=== PATIENT | female | born 1945 | race Caucasian/White ===

== ENCOUNTER 2017-08-03 09:58 | Inpatient (IN) | payer MEDICARE, BC ==
[~2017-08-03] VITALS: Ht 149.9 cm; Wt 77.1 kg
[2017-08-03] MEDS ORDERED: ASPIRIN325 MG PO (14:46)
[2017-08-03] MEDS ORDERED: ALLOPURINOL300 MG PO (14:46)
[2017-08-03] MEDS ORDERED: ATENOLOL25 MG PO (14:46)
[2017-08-03] MEDS ORDERED: COQ10200 MG PO (14:47)
[2017-08-03] MEDS ORDERED: CLOPIDOGREL75 MG PO (14:47)
[2017-08-03] MEDS ORDERED: POT CHLORIDE10 ME5 PO (14:48)
[2017-08-03] MEDS ORDERED: METFORMIN500 M1 PO (14:48)
[2017-08-03] MEDS ORDERED: CRESTOR5 M1 PO (14:50)
[2017-08-03] MEDS ORDERED: VICTOZA18 MG/3 ML SC (14:51)
[2017-08-03] MEDS ORDERED: SPIRONO/HCTZ PO (14:51)
[2017-08-20] VITALS (8 sets, daily range): BP systolic 115–150; BP diastolic 50–80
--- NOTE | 2017-08-20 15:58 | NUR ---
PT ARRIVED TO FLOOR IN STABLE CONDITION VIA HOSPITAL BED ACCOMPANIED BY OR STAFF AND FAMILY;PT ALERT AND ORIENTED X3;ORIENTED TO ROOM AND CALL LIGHT SYSTEM;VS OBTAINED AND ASSESSMENT COMPLETED;RESPIRATIONS EVEN AND UNLABORED ON RA,CLEAR LUNG SOUNDS;I.S. AT BEDSIDE AND PT EDUCATED ON USE 10X PER HOUR WHILE AWAKE.GOAL SET TO 1000;ABDOMEN SOFT ON PALPATION AND HYPOACTIVE IN ALL 4 QUADRANTS;STRONG PEDAL PULSES,SCD'S IN PLACE;SKIN INTACT;PT IS POST OP LEFT SHOULDER ARTHROPLASTY 08/20/17,DRESSING CDI AND TO BE REMOVED ON POD #2;SLING IN PLACE;ICE PACKS PROVIDED;#20G TO RIGHT FOREARM INFUSING LR @ 100ML/HR,SITE APPEARS HEALTHY;FRESH WATER PROVIDED;PT DENIES ANY PAIN OR DISCOMFORTS AND IS EDUCATED ON PAIN SCALE AND REPORTING;CAP REFILL TO LEFT HAND LESS THAN 3 SECONDS;SAFETY PRECAUTIONS REINFORCED WITH FALL PRECAUTIONS IN PLACE;CALL LIGHT IN REACH;WILL CONTINUE TO MONITOR
--- NOTE | 2017-08-20 17:50 | NUR ---
ANU ESCOBAR () PHONE #[phone]
--- NOTE | 2017-08-20 19:30 | NUR ---
PATIENT RESTING IN BED-AWAKE ALERT AND ORIENTEDX3. PATIENT STATES THAT HER FINGERS TO HER LEFT HAND ARE STILL NUMB. CMS CHECK TO LEFT FINGERS WNL. IVF LR PATENT AND INFUSING VIA RIGHT FOREARM SITE AT 100CC/HR. SITE APPEARS HEALTHY. DRESSING TO LEFT SHOULDER IS CDI. SLING IN PLACE TO LEFT ARM. SAFETY PRECAUTIONS REINFORCED.CALL LIGHT IN PLACE. WILL CONT TO MONITOR.
--- NOTE | 2017-08-20 22:00 | NUR ---
[id number] COVERAGE ORDERED. DR. WU CALLED AND ORDERS RECIEVED. WILL MEDICATE WITH NOVALOG 10UNITS SQ WHEN PROFILED BY PHARM. HS SNACK PROVIDED. LEFT ARM REMAINS IN SLING-CMS TO FINGERS WNL. PATIENT MEDICATED WITH PERCOCET 10/325MG PO FOR POST-OP PAIN. ICE PACK TO LEFT SHOULDER [id number]. DRESSING TO LEFT SHOULDER IS CDI. PATIENT ASSISTED TO BR TO VOID-STEADY ON HER FEET. VOIDING CLEAR YELLOW URINE. IV SITE TO RIGHT FOREARM INTACT WITH IVF LR PATENT AND INFUSING AT 100CC/HR. SAFETY PRECAUTIONS REINFORCED.CALL LIGHT IN REACH. WILL CONT TO MONITOR.
[2017-08-21 00:11] VITALS: BP 104/64
--- NOTE | 2017-08-21 01:11 | NUR ---
PATIENT MIN ASSIST TO BR TO VOID AND THEN BACK TO BED. PATIENT STATES THAT SHE DID HAVE BM EARLIER WHEN UP TO THE BR. TOLERATES GETTING UP WELL. SAFETY PRECAUTIONS REINFORCED.CALL LIGHT IN REACH. WILL CONT TO MONITOR.
[2017-08-21 04:08] VITALS: BP 98/54
--- NOTE | 2017-08-21 05:09 | NUR ---
PATIENT RESTING IN BED WITH LEFT SHOULDER IN SLING. PATIENT STATES THAT THE NUMBNESS TO HER LEFT FINGER IS GOING AWAY AND SHE IS STARTING TO GET FEELING BACK. C/O POST-OP PAIN TO LEFT SHOULDER-MEDICATED WITH PERCOCET 10/325MG PO. IV ANCEF INFUSING ORDERED. SAFETY PRECAUTIONS REINFORCED. CALL LIGHT IN REACH. WILL CONT TO MONITOR.
[2017-08-21 05:28] LABS: MEAN CELL VOLUME 92.2 fL CALC (80.0-100.0); MEAN CORPUSCULAR HGB 30.1 pG CALC (26.0-32.0); MEAN CORPUSCULAR HGB CONC 32.6 g/L CALC (32.0-36.0); RED BLOOD COUNT 3.99 mill/uL (4.20-5.60); RED CELL DISTRI WIDTH 14.2 % (11.5-15.5)
[2017-08-21 05:31] LABS: HEMATOCRIT 36.8 % (37.0-47.0)
[2017-08-21 06:01] LABS: ANION GAP 16 (6-22 (CALC)); BUN 17 mg/dL (8-23); BUN/CREATININE RATIO 37 (12-20 (CALC)); CARBON DIOXIDE 22 mmol/l (22-30); CHLORIDE 104 mmol/l (95-108); CREATININE 0.5 mg/dL (0.5-1.0); GFR > 60 ML/MIN (>=60 (CALC)); GFR FOR AFR.AMER. > 60 ML/MIN (>=60 (CALC)); SODIUM 138 mmol/l (137-146)
--- NOTE | 2017-08-21 06:33 | NUR ---
DR. WU NOTIFIED OF CRITICAL MG-1.0. ORDERS RECIEVED. WILL CONT TO MONITOR.
--- NOTE | 2017-08-21 07:00 | NUR ---
SHIFT CHANGE REPORT FROM STACY RICHARDSON AWAKE ALERT AND ORIENTED RESTING IN BED, DRESSING CDI TO LEFT SHOULDER IN PLACE AND ARM IN SLING, NO C/O DISCOMFORT AT THIS TIME, CALL REID IN REACH.
[2017-08-21 07:42] VITALS: BP 101/47
[2017-08-21 08:42] VITALS: BP 109/58
[2017-08-21 11:33] VITALS: BP 112/64
[2017-08-21] MEDS ORDERED: PERCOCET 10/31 COMBO PO (11:51)
--- NOTE | 2017-08-21 13:08 | NUR ---
ATE MEAL SITTINNG UP AT BEDSIDE, CONCERNED ABOUT MEAL CONTENTS, MANJIT ([employer] D[employer] INSPECTOR) NOTIFIED AND CONSULTED WITH PT TO DISCUSS CONCERNS, PT SATISFIED, WILL CONTINUE TO MONITOR.
[2017-08-21 15:50] VITALS: BP 117/55
--- NOTE | 2017-08-21 16:00 | NUR ---
PT REQUESTED TO STAY UNTIL HER RIDE ARRIVE ABOUT 1800 SO SHE DID THEN LEFT AT THAT TIME.
--- NOTE | 2017-08-21 18:00 | NUR ---
Discharge instructions given. Patient verbalizes understanding of same. Discharged in good condition via Wheelchair to Home with spouse. All belongings sent with pt.
== END 2017-08-21 18:12 | disposition home health service (06) | DRG 483 ==
LOC: MS2 08-06 13:30 → ICU 08-20 08:43 → MS2 08-20 08:43
PROVIDERS: ADMIT Orthopaedic Surgery; ATTEND Internal Medicine
PROC: 0RRK00Z Replacement of Left Shoulder Joint with Reverse Ball and Socket Synthetic Substitute, Open Approach (ICD-10-PCS; principal; 2017-08-20)
PROC: 0LS40ZZ Reposition Left Upper Arm Tendon, Open Approach (ICD-10-PCS; 2017-08-20)
DX: M75.122 Complete rotator cuff tear or rupture of left shoulder, not specified as traumatic (principal); E11.9 Type 2 diabetes mellitus without complications; M19.012 Primary osteoarthritis, left shoulder; S46.212A Strain of muscle, fascia and tendon of other parts of biceps, left arm, initial encounter; S46.812A Strain of other muscles, fascia and tendons at shoulder and upper arm level, left arm, initial encounter; M19.011 Primary osteoarthritis, right shoulder; I10 Essential (primary) hypertension; E78.5 Hyperlipidemia, unspecified; M10.9 Gout, unspecified; I25.10 Atherosclerotic heart disease of native coronary artery without angina pectoris; I25.2 Old myocardial infarction; X58.XXXA Exposure to other specified factors, initial encounter; Z95.5 Presence of coronary angioplasty implant and graft; Z79.84 Long term (current) use of oral hypoglycemic drugs
CPT/HCPCS: J2710; J3475

== ENCOUNTER 2018-07-10 06:44 | Day surgery (SDC) | payer MEDICARE, BC ==
[~2018-07-10] VITALS: Ht 147.3 cm; Wt 83.9 kg
[~2018-07-10 06:44] MED LIST: ALLOPURINOL300 MG PO; ASPIRIN325 MG PO; ASPIRIN81 MG PO; ATENOLOL25 MG PO; CLOPIDOGREL75 MG PO; COQ10200 MG PO; CRESTOR5 M1 PO; METFORMIN500 M1 PO; PERCOCET 10/31 COMBO PO; POT CHLORIDE10 ME5 PO; SPIRONO/HCTZ PO; VICTOZA18 MG/3 ML SC
[2018-07-10 08:37] VITALS: BP 124/58
== END 2018-07-10 09:15 | disposition home or self-care (01) ==
LOC: ENDO 06:44
PROVIDERS: ATTEND Surgery
PROC: 0DJD8ZZ Inspection of Lower Intestinal Tract, Via Natural or Artificial Opening Endoscopic (ICD-10-PCS; principal; 2018-07-10)
DX: Z12.11 Encounter for screening for malignant neoplasm of colon (principal); K64.4 Residual hemorrhoidal skin tags; E11.9 Type 2 diabetes mellitus without complications; I25.10 Atherosclerotic heart disease of native coronary artery without angina pectoris; Z95.5 Presence of coronary angioplasty implant and graft

== ENCOUNTER 2021-05-10 12:36 | Emergency (ER) | payer MEDICARE, BC ==
[~2021-05-10] VITALS: Ht 147.3 cm; Wt 84.0 kg
[2021-05-10] MEDS ORDERED: TRAMADOL HYDROC50 M1 PO (14:08)
[2021-05-10] MEDS ORDERED: VOLTAREN1%GEL TOP (14:08)
[2021-05-10 14:53] VITALS: BP 139/67
== END 2021-05-10 14:53 | disposition home or self-care (01) ==
LOC: ED 12:36
DX: M17.11 Unilateral primary osteoarthritis, right knee (principal); E11.9 Type 2 diabetes mellitus without complications; Z79.84 Long term (current) use of oral hypoglycemic drugs

== ENCOUNTER 2021-08-11 07:21 | Day surgery (SDC) | payer MEDICARE, BC ==
[~2021-08-11] VITALS: Ht 142.2 cm; Wt 88.5 kg
[~2021-08-11 07:21] MED LIST changes: +BYDUREON B2 MG/0.85; +PREVAGEN10 MG PO; +TRAMADOL HYDROC50 M1 PO; +VITAMIN B-12500 MCG PO; +VOLTAREN1%GEL TOP; +ZINC50 M1 PO
[2021-08-11] MEDS ORDERED: BENADRYL 25MG C25 MG PO (08:07)
[2021-08-11] MEDS ORDERED: PERCOCET 5/321 COMBO PO (10:05)
[2021-08-11 10:30] VITALS: BP 137/72
== END 2021-08-11 11:06 | disposition home or self-care (01) ==
LOC: ORM 07:21 → PO 08:00 → ORM 11:06
PROVIDERS: ATTEND Surgery
PROC: 0JBL0ZZ Excision of Right Upper Leg Subcutaneous Tissue and Fascia, Open Approach (ICD-10-PCS; principal; 2021-08-11)
DX: D17.23 Benign lipomatous neoplasm of skin and subcutaneous tissue of right leg (principal); I10 Essential (primary) hypertension